=== PATIENT | male | born 1990 | race Caucasian/White ===

== ENCOUNTER 2019-12-16 07:03 | Outpatient (CLI) | payer BC ==
[2019-12-16 11:32] LABS: Bilirubin Neg (Negative); Blood, Urine Negative (Negative); Clarity Clear (Clear); Glucose, Urine (Dipstick) Normal (Negative); Ketone, Urine Negative (Negative); Leukocyte Negative (Negative); Nitrite Negative (Negative); Protein, Urine (Dipstick) Negative (Neg-Trace); Specific Gravity, Urine 1.005 (1.002-1.036); Urobilinogen Normal mg/dL (Less than 2)
[2019-12-16 11:35] LABS: Hemoglobin 14.9 g/dL (14.0-18.0); Mean Corpuscular HGB CONC 33.3 G/DL (32.0-36.0); Mean Platelet Volume 11.4 fl (7.4-10.4); Platelet Count 194 10x3/uL (130-400); RBC Distribution Width 12.3 % (11.5-14.5); Red Blood Cell (RBC) Count 5.14 10x6/uL (4.40-5.80); White Blood Cell (WBC) Count 5.5 10x3/uL (4.5-11.0)
[2019-12-16 11:56] LABS: Anion Gap 16 mmol/L (10-20); BUN (Urea Nitrogen) 17 mg/dL (8.9-20.6); Calc. Creatinine Clearance 0 mL/min (70-130); Calcium 9.5 mg/dL (7.8-10.44); Carbon Dioxide 23 mmol/L (22-29); Chloride 102 mmol/L (98-107); Estimated GFR-MDRD Greater than 90; Glucose 92 mg/dL (70-105); Sodium 136 mmol/L (136-145)
[2019-12-16 11:57] LABS: Bacteria/HPF None Seen HPF (None Seen); RBC/HPF None Seen HPF (0-3); Squamous Epithelial None Seen HPF (0-3); WBC/HPF None Seen HPF (0-3)
[2019-12-16 11:59] LABS: PTT 25.6 sec (22.0-33.0); Prothrombin Time 10.9 sec (9.5-12.1)
[2019-12-17 15:34] LABS: SARS-CoV-2 MS2 Positive; SARS-CoV-2 N Gene Negative; SARS-CoV-2 S Gene Negative; SARS-CoV-2 by NAA Not Detected (NotDetected); SARS-CoV-2 orf1ab Negative
== END 2019-12-16 07:04 | disposition home or self-care (01) ==
LOC: LABBT 07:03
PROVIDERS: ATTEND Urology
DX: Z01.812 Encounter for preprocedural laboratory examination (principal); I86.1 Scrotal varices; N46.9 Male infertility, unspecified; Z20.828 Contact with and (suspected) exposure to other viral communicable diseases
CPT/HCPCS: 80048; 81001; 85027; 85610; 85730; 87086; 87635; U0003

== ENCOUNTER 2019-12-19 06:13 | Day surgery (SDC) | payer BC ==
[2019-12-18 11:41] VITALS: BMI 26.6
[2019-12-19] MEDS ORDERED: Bupivacaine 0.25% HCL 30 ML VIAL ONE (06:40)
[2019-12-19] MEDS ORDERED: Papaverine 60 MG/2 ML VIAL ONE (06:40)
[2019-12-19] MEDS ORDERED: Fentanyl 100 MCG/2 ML VIAL ONE ×2 (07:13→10:00)
[2019-12-19] MEDS ORDERED: Midazolam HCl 2 mg/2 ml Vial ONE (07:18)
[2019-12-19] MEDS ORDERED: HYDROmorphone 0.5 MG/0.5 ML SYRINGE ONE (07:39)
[2019-12-19] MEDS ORDERED: diphenhydrAMINE 50 MG/ML VIAL ONE (09:14)
[2019-12-19] MEDS ORDERED: Dexamethasone 20 MG/5 ML VIAL ONE (09:14)
[2019-12-19] MEDS ORDERED: PROPOFOL 200 MG/20 ML VIAL ONE (09:14)
[2019-12-19] MEDS ORDERED: Ondansetron PF 4 MG/2 ML Vial ONE (09:14)
[2019-12-19] MEDS ORDERED: Ketorolac Tromethamine 30 MG/ML VIAL ONE (09:14)
[2019-12-19] MEDS ORDERED: HYDROcodone/Acetaminophen 5/325 mg Tablet ONE (10:52)
--- NOTE | 2019-12-19 12:03 | OP ---
DATE OF PROCEDURE: 12/19/2019 SERVICE: Urology. PREOPERATIVE DIAGNOSIS: Left varicocele. POSTOPERATIVE DIAGNOSIS: Left varicocele. PROCEDURE PERFORMED: Left varicocelectomy via the inguinal approach. INDICATIONS FOR PROCEDURE: Mr. Schroeder is a 29-year-old white male, who had been attempting to conceive with his . His semen parameters are abnormal. He was found to have a left-sided varicocele. We discussed options and he elected to proceed for the varicocelectomy after risks and benefits have been discussed. DESCRIPTION OF PROCEDURE: After identification of armband and verification of consent, the patient was brought back to the operating room, where he underwent general anesthesia with an LMA. He was left in the supine position and prepped and draped in usual sterile fashion. After appropriate time-out, an incision was made along the left inguinal crease above the inguinal ligament along Cj's lines with a 10 blade. Dissection was carried down with Bovie electrocautery through Deep's fascia until the external oblique aponeurosis was identified. The surrounding tissue was then cleared off until the external ring could be identified. A small incision was made with a 15 blade in the external oblique aponeurosis and then the aponeurosis was opened using tenotomy scissors. The ilioinguinal nerve was identified and moved medially out of the way to avoid injury during the remainder of the surgery. The internal oblique muscles could be identified and moved upwards, at which point the spermatic cord was identified along the inguinal canal. This was mobilized circumferentially using blunt dissection and then elevated using a [place] drain. The spermatic cord was then opened with the surrounding fascia until the internal structures could be identified. A suture was used to retract the vas deferens to keep it out of the surgical field to avoid injury for later in the case. There were multiple dilated veins that could be identified. The largest veins were ligated and divided using Doppler ultrasound to confirm that the artery was patent and secure. We were able to secure and identify the testicular artery, which was then kept with its own special suture for retraction to keep out of the field. The remaining veins were then isolated and ligated using 4-0 silk ties. Upon completion, Doppler signals to the testicle were found to be intact through the deferential artery as well as the testicular artery. All veins had been divided. There was some additional tissue with what appeared to be lymphatic channel still present, which we left intact to try and avoid hydrocele occurrence. No additional veins could be identified. The Emiliano was then removed and the cord was thoroughly irrigated initially with saline and then bathed in 0.25% Marcaine plain for analgesia. The external oblique aponeurosis was then reapproximated using a 2-0 PDS, taking care not to ligate the ilioinguinal nerve. This was closed up to the level of the external ring. The Deep's fascia were then closed with interrupted 2-0 Vicryl and the skin closed with 4-0 Monocryl. Dermabond was applied. The patient had infiltration underneath the skin with remaining 10 mL of 0.25% Marcaine plain. He was then awakened and taken to PACU for recovery in stable condition. COMPLICATIONS: None. ESTIMATED BLOOD LOSS: Minimal. RETAINED TUBES AND DRAINS: None. SPECIMENS: None. DISPOSITION: The patient will be discharged home and follow up with me in approximately 1 week for postop check. Job ID: [id number]
== END 2019-12-19 11:35 | disposition home or self-care (01) ==
LOC: SDC 06:13
PROVIDERS: ATTEND Urology
PROC: 0VBG0ZZ Excision of Left Spermatic Cord, Open Approach (ICD-10-PCS; principal; 2019-12-19)
DX: I86.1 Scrotal varices (principal); M19.90 Unspecified osteoarthritis, unspecified site; Z87.891 Personal history of nicotine dependence; Z91.010 Allergy to peanuts; Z91.018 Allergy to other foods
CPT/HCPCS: J0690; J1100; J1170; J1200; J1885; J2250; J2405; J2440; J2704; J3010; S0020